=== PATIENT | female | born 2000 | race Caucasian/White ===

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

== ENCOUNTER 2021-09-20 17:32 | Emergency (ER) | payer BC ==
[2021-09-20] MEDS ORDERED: Amoxicillin/Clavulanate K 875-125 MG Tab PO ONE (17:33)
== END 2021-09-20 18:15 | disposition home or self-care (01) ==
LOC: FB.ED 17:32
DX: J02.0 Streptococcal pharyngitis (principal)
CPT/HCPCS: 99281; 99283; A9270-GY